=== PATIENT | female | born 1980 | race Caucasian/White ===

== ENCOUNTER 2019-11-21 06:00 | Outpatient (CLI) | payer OTHER ==
[2019-11-21 14:11] LABS: Hemoglobin 14.2 g/dL (12.0-16.0); Mean Corpuscular HGB CONC 33.9 g/dL (32.0-36.0); Mean Corpuscular Hemoglobin 32.5 pg (27.0-31.0); Mean Corpuscular Volume 95.9 fL (78.0-98.0); Mean Platelet Volume 8.8 fL (7.4-10.4); Platelet Count 195 thou/uL (130-400); RBC Distribution Width 11.4 % (11.5-14.5); Red Blood Cell (RBC) Count 4.36 mill/uL (4.20-5.40); White Blood Cell (WBC) Count 6.5 thou/uL (4.8-10.8)
[2019-11-21 14:21] LABS: PTT 35.4 sec (22.9-36.1); Prothrombin Time 13.5 sec (12.0-14.7)
[2019-11-21 14:25] LABS: Anion Gap 14 mmol/L (10-20); BUN (Urea Nitrogen) 11 mg/dL (7.0-18.7); Calc. Creatinine Clearance 0 mL/min (70-130); Calcium 8.9 mg/dL (7.8-10.44); Carbon Dioxide 28 mmol/L (22-29); Chloride 98 mmol/L (98-107); Estimated GFR-MDRD 76; Glucose 135 mg/dL (70-105); Sodium 136 mmol/L (136-145)
[2019-11-22 13:53] LABS: SARS-CoV-2 MS2 Positive; SARS-CoV-2 N Gene Negative; SARS-CoV-2 S Gene Negative; SARS-CoV-2 orf1ab Negative
== END 2019-11-21 06:01 | disposition home or self-care (01) ==
LOC: LABBT 06:00
PROVIDERS: ATTEND Surgery
DX: Z01.812 Encounter for preprocedural laboratory examination (principal); Z11.59 Encounter for screening for other viral diseases; M54.16 Radiculopathy, lumbar region; M51.26 Other intervertebral disc displacement, lumbar region; M48.061 Spinal stenosis, lumbar region without neurogenic claudication
CPT/HCPCS: 80048; 85027; 85610; 85730; 87635; 93005; 93010; U0003

== ENCOUNTER 2019-11-24 07:18 | Day surgery (SDC) | payer OTHER ==
[2019-11-20 10:55] VITALS: BMI 38.4
[2019-11-24] MEDS ORDERED: Thrombin 5000 UNITS/5 ML VIAL ONE (09:20)
[2019-11-24] MEDS ORDERED: Midazolam HCl 2 mg/2 ml Vial ONE (09:25)
[2019-11-24] MEDS ORDERED: Fentanyl 250 MCG/5 ML VIAL ONE (09:54)
[2019-11-24] MEDS ORDERED: Glycopyrrolate 0.2 MG/ML 5 ML SYRINGE ONE (10:51)
[2019-11-24] MEDS ORDERED: Rocuronium Bromide 10 MG/ML (10ML VIAL) ONE (10:51)
[2019-11-24] MEDS ORDERED: Ondansetron PF 4 MG/2 ML Vial ONE (10:51)
[2019-11-24] MEDS ORDERED: Lidocaine 1% PF 5 ML VIAL ONE (10:51)
[2019-11-24] MEDS ORDERED: Metoclopramide HCl 10 MG/2 ML VIAL ONE (10:51)
[2019-11-24] MEDS ORDERED: PROPOFOL 200 MG/20 ML VIAL ONE (10:51)
[2019-11-24] MEDS ORDERED: Milk Of Magnesia 30 ML UDCUP PO PRN (12:26)
[2019-11-24] MEDS ORDERED: Morphine 2 MG/ML SYRINGE SLOW IVP PRN (12:26)
[2019-11-24] MEDS ORDERED: Mag-Al 1200 mg/1200 mg/30 ML UDCUP PO PRN (12:26)
[2019-11-24] MEDS ORDERED: diphenhydrAMINE 25 MG CAP PO PRN (12:26)
[2019-11-24] MEDS ORDERED: Acetaminophen 325 MG TAB PO PRN (12:26)
[2019-11-24] MEDS ORDERED: Fleet Enema 133 ML BOT PR PRN (12:26)
[2019-11-24] MEDS ORDERED: Bisacodyl 10 MG SUPP PR PRN (12:26)
[2019-11-24] MEDS ORDERED: HYDROmorphone 0.5 MG/0.5 ML SYRINGE ONE ×4 (12:27→13:00)
[2019-11-24] MEDS ORDERED: Cyclobenzaprine 10 MG TAB PO PRN (12:29)
[2019-11-24] MEDS: Sodium Chloride 0.9% 1,000 ML IV SCH ×2 (12:30→16:26)
[2019-11-24] MEDS ORDERED: Non-Formulary Item 1 EACH (Dulaglutide [Trulicity] 1.5 MG) SC SCH (12:30)
[2019-11-24] MEDS ORDERED: Promethazine HCl 25 MG/ML VIAL SLOW IVP PRN (12:32)
[2019-11-24] MEDS ORDERED: Ondansetron HCl/PF 4 MG/2 ML Vial IVP PRN (12:32)
[2019-11-24] MEDS ORDERED: Promethazine HCl 25 MG/ML VIAL IM PRN (12:32)
[2019-11-24] MEDS ORDERED: HYDROmorphone 2 MG/ML VIAL SLOW IVP PRN (12:32)
[2019-11-24] MEDS ORDERED: Fentanyl 100 MCG/2 ML VIAL ONE ×2 (13:12→13:55)
[2019-11-24] MEDS ORDERED: Nicotine 21 MG PATCH TOP SCH (16:00)
[2019-11-24] MEDS: HYDROcodone/Acetaminophen 7.5/325 mg Tablet PO PRN ×2 (16:27→20:31)
[2019-11-24] MEDS: CEFAZOLIN 2 GM in Premix Bag 1 BAG IVPB SCH ×2 (16:28→23:28)
[2019-11-24] MEDS: Gabapentin 300 MG CAP PO SCH ×2 (16:28→20:31)
[2019-11-24] MEDS: traMADol HCl 50 MG TAB PO PRN (17:31)
[2019-11-24] MEDS: Acetaminophen/Codeine 30-300mg Tablet PO PRN ×2 (18:31→22:07)
[2019-11-24] MEDS: Magnesium Oxide 400 MG TAB PO SCH (20:31)
[2019-11-24] MEDS ORDERED: traZODone HCl 150 MG TAB PO SCH (21:00)
[2019-11-24] MEDS ORDERED: MAGNESIUM OXIDE 400 MG PO SCH (21:00)
[2019-11-24] MEDS ORDERED: TRAZODONE HCL 300 MG PO SCH (21:00)
[2019-11-25] MEDS: traMADol HCl 50 MG TAB PO PRN ×2 (00:36→08:57)
[2019-11-25] MEDS: Sodium Chloride 0.9% 1,000 ML IV SCH (04:11)
[2019-11-25 04:17] VITALS: TEMP 98.3
[2019-11-25] MEDS: HYDROcodone/Acetaminophen 7.5/325 mg Tablet PO PRN ×2 (05:23→11:23)
--- NOTE | 2019-11-25 06:03 | OP ---
DATE OF PROCEDURE: 11/24/2019 NEGATIVE TURNER: Caren Reynaga PA-C PREPROCEDURE DIAGNOSIS: Low back and leg pain with lumbar disk extrusion. POSTPROCEDURE DIAGNOSIS: Low back and leg pain with lumbar disk extrusion. PROCEDURES PERFORMED: 1. L4-L5 laminectomy, partial facetectomy, and foraminotomy with left-sided diskectomy. 2. Use of operative microscope for microdissection. DESCRIPTION OF PROCEDURE: After informed consent was obtained from the patient, the patient was brought to the OR. Proper patient, pause, and identification were carried out. She was placed under excellent general endotracheal anesthesia and positioned prone on the OR table. All appropriate points were padded. We identified the L4-L5 dorsal spines. Linear beverley was made over this area. This region was sterilely cleansed, prepared, and draped. Proper patient, pause, and identification were carried out. The wound was then opened with a combination of sharp, monopolar, and blunt dissection. The L4-L5 dorsal spines and lamina were exposed. We then performed an L4-L5 laminectomy, partial facetectomy, and foraminotomies with excellent decompression of common dural tube and nerve roots. We then brought the microscope in for microdissection and working over the traversing left L5 nerve roots shoulder, we removed disk material to free this nerve root up and assured freedom of the right L5 nerve root as well. Copious irrigation occurred throughout as did maximizing hemostasis. There was no spinal fluid leak. The wound was then closed in anatomic layers following sprinkling of vancomycin powder. The patient then emerged from anesthesia. Job ID: [id number]
[2019-11-25 07:11] VITALS: BP 95/65
[2019-11-25] MEDS: Gabapentin 300 MG CAP PO SCH (08:57)
[2019-11-25] MEDS: Magnesium Oxide 400 MG TAB PO SCH (08:58)
[2019-11-25] MEDS ORDERED: Nicotine 21 MG PATCH TOP SCH (09:00)
[2019-11-25] MEDS ORDERED: Insulin Glargine 30 UNITS in Pre-Filled Syringe 1 EACH SC SCH (09:00)
[2019-11-25] MEDS ORDERED: Escitalopram Oxalate 20 mg Tablet PO SCH (09:00)
[2019-11-25] MEDS ORDERED: Atorvastatin Calcium 10 MG TAB PO SCH (09:00)
[2019-11-25] MEDS ORDERED: Furosemide 20 MG TAB PO SCH (09:00)
[2019-11-25] MEDS ORDERED: INSULIN DEGLUDEC 30 UNIT SQ SCH (09:00)
[2019-11-25] MEDS ORDERED: Hydrochlorothiazide 25 MG TAB PO SCH (09:00)
--- NOTE | 2019-11-25 09:01 | PRG ---
DATE OF SERVICE: 11/25/2019 I saw Supriya Caldwell in her hospital room this morning. She is 1 day out from an L4-5 laminectomy with diskectomy. She has some paraspinal muscle tenderness and pain. She has already been ambulating. Paulette does not have any new neurological deficits and she has been afebrile with stable vital signs overnight. Paulette is safe for activities of daily living and can be discharged later today. Job ID: [id number]
--- NOTE | 2019-11-26 09:57 | DIS ---
DATE OF ADMISSION: 11/24/2019 DATE OF DISCHARGE: 11/25/2019 HOSPITAL COURSE: Ms. Caldwell is a 39-year-old female, who is one day out from L4-5 laminectomy with diskectomy. She had some muscle tenderness and pain this morning. Following her surgery, she was transitioned to the med/surg floor, where her pain has been well controlled with p.o. medications. She is tolerating a regular diet and is voiding appropriately. She is otherwise doing well and ambulating easily in the hallways and feels that she is ready to go home today. PHYSICAL EXAMINATION: Today, she is awake, alert, and in no acute distress. She has free active range of motion on all her extremities. No focal motor weakness. No reflex asymmetry. Her incision is dry, clean, and intact. She has no neurological deficits and she has been afebrile with stable vital signs overnight. PLAN: We will plan to discharge Ms. Caldwell home later today. I have discussed home care precautions with her. CONDITION ON DISCHARGE: The patient had no emergencies. Condition was stable for discharge. MEDICATIONS: Home going medications were reviewed. FOLLOWUP: Followup arrangements made with our patient access coordinator in the clinic and call to the patient. ACTIVITIES: Restrictions were reviewed in person. Wound care showers are acceptable. The patient should pat the incision dry but not submerge it under the surface of the body of water for 2 months. Job ID: [id number]
== END 2019-11-25 11:57 | disposition home or self-care (01) ==
LOC: SDC 07:18 → SJJU 12:30 → SDC 11-25 11:57
PROVIDERS: ATTEND Surgery
PROC: 0ST20ZZ Resection of Lumbar Vertebral Disc, Open Approach (ICD-10-PCS; principal; 2019-11-24)
PROC: 01NB0ZZ Release Lumbar Nerve, Open Approach (ICD-10-PCS; principal; 2019-11-24)
DX: M48.061 Spinal stenosis, lumbar region without neurogenic claudication (principal); M51.16 Intervertebral disc disorders with radiculopathy, lumbar region; I10 Essential (primary) hypertension; E78.5 Hyperlipidemia, unspecified; G40.909 Epilepsy, unspecified, not intractable, without status epilepticus; E11.9 Type 2 diabetes mellitus without complications; M19.90 Unspecified osteoarthritis, unspecified site; E66.9 Obesity, unspecified; Z68.38 Body mass index [BMI] 38.0-38.9, adult; F17.200 Nicotine dependence, unspecified, uncomplicated; F41.9 Anxiety disorder, unspecified; Z79.01 Long term (current) use of anticoagulants; Z79.4 Long term (current) use of insulin; Z79.899 Other long term (current) drug therapy
CPT/HCPCS: 36416; 76000; J0690; J1170; J1815; J2001; J2250; J2405; J2704; J2765; J3010; J3370